=== PATIENT | female | born 2000 | race Caucasian/White ===

== ENCOUNTER 2022-02-20 22:41 | Emergency (ER) | payer MEDICAID, SELFPAY ==
--- NOTE | 2022-02-20 22:44 | USR_ITS ---
PROCEDURE INFORMATION: Exam: US First Trimester, Transabdominal and US , Exam date and time: 02/20/2022 11:54 PM Age: 21 years old Clinical indication: Lmp or gestational age (in weeks): 10w 2d per lmp; Antepartum complications; Bleeding; Patient HX: Heavy vag bleed x 4 days. She fell today and vag bleed increased. ; Additional info: Fall, abd pain LABS AND CLINICAL REPORTS: Gestational age (Established): 10 w 2 d Estimated due date (Established): 09/16/2022 TECHNIQUE: Imaging protocol: Real-time transabdominal obstetrical ultrasound of the maternal pelvis and a first trimester , less than 14 weeks 0 days, with image documentation. Patient refused transvaginal imaging. COMPARISON: No relevant prior studies available. FINDINGS: Gestation: No obvious intrauterine at this time. MATERNAL: Uterus: Uterus measures 8.9 cm x 4.8 cm x 5.8 cm. 9 mm endometrial stripe. Cervix: Unremarkable. Right ovary/adnexa: Right ovary measures 3.5 cm x 2.2 cm x 2.3 cm. Right ovarian volume is 9.1 mL. 2 cm simple right ovarian cyst. Left ovary/adnexa: Left ovary measures 2.7 cm x 2.9 cm x 3 cm. Left ovarian volume is 16.5 mL. 1.7 cm simple left ovarian cyst. Intraperitoneal space: No intraperitoneal free fluid. US/US OB <=14 wk fetus w transvag IMPRESSION: 1. 2 cm simple right ovarian cyst. 2. 1.7 cm simple left ovarian cyst. 3. Normal uterus. 4. Normal ovarian perfusion bilaterally with no torsion. 5. No obvious intrauterine . 6. Serial quantitative hCGs and/or followup ultrasound may be helpful.
[2022-02-20 22:45] VITALS: BP 125/69; PULSE 77; RESP 18; TEMP 36.8; O2SAT 99
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
[2022-02-20 22:53] VITALS: PULSE 77; RESP 18; O2SAT 100
[2022-02-20 23:46] LABS: Basophils # 0.1 10^3/uL (0.0-0.1); Basophils % 0.6 %; Eosinophils # 0.2 10^3/uL (0.0-0.8); Eosinophils % 2.5 %; Hematocrit 36.2 % (37.0-47.0); Hemoglobin 12.4 g/dL (11.5-15.3); Lymphocytes # 2.7 10^3/uL (1.5-6.5); Lymphocytes % 27.4 %; Mean Corpuscular HGB Conc 34.3 g/dL (30.0-36.0); Mean Corpuscular Hemoglobin 30.1 pg (28.0-34.0); Mean Corpuscular Volume 87.9 fl (81-99); Mean Platelet Volume 9.8 fL (7.4-10.4); Monocytes # 0.5 10^3/uL (0.2-0.9); Neutrophils # 6.29 10^3/uL (1.8-8.0); Neutrophils % 64.2 %; Nucleated Red Blood Cells % 0 %; Platelet Count 368 10^3/cmm (130-400); Red Blood Count 4.12 10^6/uL (4.1-5.3); Red Cell Distribution Width 11.7 % (12.1-15.1); White Blood Count 9.8 10^3/uL (4.5-13.0)
[2022-02-21 00:06] VITALS: BP 107/71; PULSE 76; RESP 16; O2SAT 99
[2022-02-21 00:09] LABS: Alanine Aminotransferase 7 U/L (0-33); Albumin Level 4.3 g/dL (3.5-5.2); Alkaline Phosphatase 47 U/L (35-105); Aspartate Amino Transferase 14 U/L (0-32); Blood Urea Nitrogen 7 mg/dL (6-20); Calcium 9.5 mg/dL (8.5-10.5); Carbon Dioxide 25 mmol/L (22-29); Chloride 103 mmol/L (98-107); Globulin 1.8 g/dL (1.3-4.6); Glomerular Filtration Rate 158.9 mL/min (90-130); Glucose 93 mg/dL (65-115); Osmolality Calculated 282 mOsm/kg (285-295); Sodium 137 mmol/L (136-145); Total Bilirubin 0.4 mg/dL (0.15-1.2); Total Protein 6.1 g/dL (6.6-8.7)
[2022-02-21 01:24] VITALS: BP 109/68; PULSE 75; RESP 18; O2SAT 98
--- NOTE | 2022-02-21 07:56 | PC.SOCIAL ---
Addendum entered by An Rowell 03/29/22 13:30: Patient had a follow up appointment for patient with [facility] - patient did attend appointment. Original Note: OBGYN Follow-Up Referral sent to OBGYN for follow up. Clinic to contact patient with appt date/time.
== END 2022-02-21 01:26 | disposition home or self-care (01) ==
PROVIDERS: Emergency Provider Nurse Practitioner Family
DX: O03.9 Complete or unspecified spontaneous abortion without complication (principal)
CPT/HCPCS: 76801; 76817; 80053; 84702; 85025; 86900; 99284

== ENCOUNTER → 2022-02-22 13:20 | Outpatient (BNVA) | payer MEDICAID, SELFPAY | PROVIDERS: Visit Provider Obstetrics & Gynecology | DX: O03.9 Complete or unspecified spontaneous abortion without complication (principal) | CPT/HCPCS: 84702 ==

== ENCOUNTER → 2022-02-24 13:00 | Outpatient (BNVA) | payer MEDICAID, SELFPAY | PROVIDERS: Visit Provider Obstetrics & Gynecology | DX: O03.9 Complete or unspecified spontaneous abortion without complication (principal) | CPT/HCPCS: 84702 ==

== ENCOUNTER 2023-05-24 19:35 | Emergency (ER) | payer MEDICAID, SELFPAY ==
[2023-05-24 19:39] VITALS: BP 106/77; PULSE 94; RESP 16; TEMP 36.6; O2SAT 99; BMI 21.2
--- NOTE | 2023-05-24 19:56 | ED_ITS ---
HPI - 2 General: Chief complaint: Abdominal Pain Stated complaint: abdomen pain- 11 wks ,cramping Time Seen by Provider: 05/24/23 19:40 History of Present Illness: 22-year-old female comes in today with c omplaints of right lower quadrant abdominal pain starting at about 4:00 this afternoon. Patient reports it is consistent cramping. Patient is 11 weeks and 1 day. Patient [facility] care [facility]. Patient's last menstrual cycle was March 18. Patient is 5 para 0. Patient reports some nausea and chills. Patient denies any vaginal bleeding and only light discharge. Patient denies any surgeries. Patient does vape nicotine. Patient had ultrasound at 7 weeks that was unremarkable. Patient appears nontoxic. Patient appears in mild pain at rest. Patient reports pain is exacerbated by movement. MD Complaint: abdominal pain Onset (ago): hour(s) Pain Consistency: constant Location: abdomen (rlq) Severity: moderate Relieving factors: rest Exacerbating factors: movement Vaginal discharge: clear Vaginal bleeding: none Date of Last Menstrual Period: 03/18/23 Patient : Yes Number of Weeks : 11 OB History - Current : no complications OB History - Previous Pregnancies: miscarriage care: previous ultrasound confirms IUP (7 wks) Associated symptoms: Reports abdominal pain Related Data: : 4 Review of Systems 2 General: Reports: 10 or more systems reviewed and unremarkable except in HPI and below GI: Reports: abdominal pain [facility] 2 Female Reproductive History: Date of last menstrual period: 03/18/23 G ravida: 4 Physical Exam 2 Const: COMMON NORMALS: alert HENMT: COMMON NORMALS: normocephalic HEAD & SCALP: normocephalic Neck/C-Spine: COMMON NORMALS: full ROM Resp: COMMON NORMALS: normal respiratory effort Cardio: COMMON NORMALS: regular rate RATE: regular rate GI: COMMON NORMALS: Soft to palpation PALPATION: Yes Soft to palpation : COMMON NORMALS: Yes no CVA tenderness BLADDER/KIDNEY EXAM: Yes no CVA tenderness Back/Pelvis: COMMON NORMALS: no CVA tenderness and thoracic and lumbar spine normal to inspection Extremity: COMMON NORMALS: normal to inspection Neuro: SENSORIUM/ORIENTATION: Yes alert Psych: COMMON NORMALS: cooperative Skin: COMMON NORMALS: turgor normal GENERAL SKIN EXAM: turgor normal Procedures Perimortem Number of Weeks : 11 Course 2 Vital Signs: Vital signs: Vital Signs Temperature 98 F 05/24/23 19:39 Pulse Rate 84 05/24/23 21:24 Respiratory Rate 16 05/24/23 21:24 Blood Pressure 128/69 05/24/23 21:24 Pulse Oximetry 93 05/24/23 21:24 Oxygen Delivery Me thod Room Air 05/24/23 19:39 MDM - OB/Uterine Contractions Medical Decision Making Patient is 11 weeks came in due to increased right lower quadrant abdominal pelvic pain. On exam patient is alert and oriented. Abdomen soft, mild tenderness to the right lower quadrant. Bowel sounds are present. Vital signs are normal. Differential diagnosis includes not limited to UTI, threatened miscarriage, appendicitis, constipation. CBC was normal. CRP was normal. CMP noted some mild decrease in potassium at 3.4. Urinalysis was a dirty catch. Ultrasound showed a single live intrauterine at 12 weeks with a heart rate of 157. Reviewed exam with patient's and family with recommendations for treatment and follow-up. Patient reported understanding and agreed to plan. Lab Data 05/24/23 19:58 05/24/23 19:58 Radiology Impressions Ultrasound 05/24/23 20:01 IMPRESSION: Single living intrauterine measuring 12 weeks 2 days by crown-rump length. Laboratory Results WBC 5.71 10^3/uL (4.5-13.0) 05/24/23 19:58 RBC 4.16 10^6/uL (3.85-5.65) 05/24/23 19:58 Hgb 12.20 g/dL (12.4-14.8) L 05/24/23 19:58 Hct 36.2 % (36-47) 05/24/23 19:58 MCV 87.0 fl (85-98) 05/24/23 19:58 MCH 29.3 pg (27-33) 05/24/23 19:58 MCHC 33.7 g/dL (30-55) 05/24/23 19:58 RDW 12.6 % (12.1-15.1) 05/24/23 19:58 Plt Count 262 10^3/cmm (157-399) 05/24/23 19:58 MPV 9.4 fL (7.4-10.4) 05/24/23 19:58 Neut % (Auto) 63.1 % 05/24/23 19:58 Lymph % (Auto) 29.9 % 05/24/23 19:58 [place] % (Auto) 5.1 % 05/24/23 19:58 Eos % (Auto) 1.1 % 05/24/23 19:58 Baso % (Auto) 0.4 % 05/24/23 19:58 Neut # (Auto) 3.61 10^3/uL (1.8-8.0) 05/24/23 19:58 Lymph # (Auto) 1.7 10^3/uL (1.5-6.5) 05/24/23 19:58 [place] # (Auto) 0.3 10^3/uL (0.2-0.9) 05/24/23 19:58 Eos # (Auto) 0.1 10^3/uL (0.0-0.8) 05/24/23 19:58 Baso # (Auto) 0.0 10^3/uL (0.0-0.1) 05/24/23 19:58 Nucleated RBC % (auto) 0 % 05/24/23 19:58 Nucleated RBCs # 0.0 /100WBC 05/24/23 19:58 Sodium 139 mmol/L (136-145) 05/24/23 19:58 Potassium 3.4 mmol/L (3.5-5.1) L 05/24/23 19:58 Chloride 106 mmol/L (98-107) 05/24/23 19:58 Carbon Dioxide 21 mmol/L (22-29) L 05/24/23 19:58 Anion Gap 15.4 (5-19) 05/24/23 19:58 BUN 5 mg/dL (6-20) L 05/24/23 19:58 Creatinine 0.4 mg/dL (0.5-0.9) L 05/24/23 19:58 GFR Calculation 203.5 mL/min (90-130) H 05/24/23 19:58 Glucose 89 mg/dL (65-115) 05/24/23 19:58 Calculated Osmolality 285 mOsm/kg (285-295) 05/24/23 19:58 Calcium 8.7 mg/dL (8.5-10.5) 05/24/23 19:58 Total Bilirubin 0.3 mg/dL (0.15-1.2) 05/24/23 19:58 AST 13 U/L (0-32) 05/24/23 19:58 ALT 13 U/L (0-33) 05/24/23 19:58 Alkaline Phosphatase 43 U/L (35-105) 05/24/23 19:58 C-Reactive Protein 3.0 mg/L (0.0-4.9) 05/24/23 19:58 Total Protein 6.3 g/dL (6.6-8.7) L 05/24/23 19:58 Albumin 3.9 g/dL (3.5-5.2) 05/24/23 19:58 Globulin 2.4 g/dL (1.3-4.6) 05/24/23 19:58 Ser , Semi-Qnt 323519.00 mIU/mL 05/24/23 19:58 Urine Color Yellow (Yellow) 05/24/23 19:53 Urine Appearance Cloudy (CLEAR) A 05/24/23 19:53 Urine pH 7 (5-7) 05/24/23 19:53 Ur Specific [place] 1.015 (1.005-1.030) 05/24/23 19:53 Urine Protein Neg (Negative) 05/24/23 19:53 Urine Glucose (UA) Norm (Normal) 05/24/23 19:53 Urine Ketones Negative (Negative) 05/24/23 19:53 Urine Blood Neg (Negative) 05/24/23 19:53 Urine Nitrate Negative (Negative) 05/24/23 19:53 Urine Bilirubin Neg (Negative) 05/24/23 19:53 Urine Urobilinogen Neg mg/dL (Negative) 05/24/23 19:53 Ur Leukocyte Esterase 2+ (Negative) H 05/24/23 19:53 Urine RBC None /hpf (0-2) 05/24/23 19:53 Urine WBC 5-10 /hpf (0-5) H 05/24/23 19:53 Ur Squamous Epith Cells 15-25 /hpf (0-5) H 05/24/23 19:53 Amorphous Sediment Not Reportable 05/24/23 19:53 Urine Bacteria 2+ /hpf (NONE) H 05/24/23 19:53 All radiology interpretation(s) finalized by discharge Discharge Plan Discharge Patient Disposition: Home Clinical Impression: Abdominal pain Qualifiers: Abdominal location: right lower quadrant Qualified Code(s): R10.31 - Right lower quadrant pain Qualifiers: Weeks of gestation: 12 weeks Qualified Code(s): Z3A.12 - 12 weeks gestation of Condition: Stable Prescriptions: No Action No Known Home Medications Discharge Orders: Discharge ED (Routine); Ordered 05/24/23 Ordered By: Bacilio Bertrand Discharge Diet: Usual diet Discharge Activity: Increase activity as tolerated Patient Instructions: Abdominal Pain (ED) Activity Restrictions/Additional Instructions: Drink plenty of fluids. Activity as tolerated. Follow-up with primary care for further instructions. Return to ED for new concerns such as high fever, vaginal bleeding, or severe pain. 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
--- NOTE | 2023-05-24 20:01 | USR_ITS ---
PROCEDURE INFORMATION: Exam: US First Trimester, Transabdominal and US , Transvaginal Exam date and time: 05/24/2023 8:59 PM Age: 22 years old Clinical indication: complicated by abdominal or pelvic pain; Right lower quadrant; First trimester (<14 weeks 0 days); Gestational age or lmp: 12w 2d; ; Patient HX: Rlq pain x 4 hours. No vaginal bleeding. ; Additional info: Abd pain LABS AND CLINICAL REPORTS: Serum Choriogonadotropin (HCG): 214605 mIU/mL Last menstrual period start date: Unknown Gestational age (Established): 11 w 1 d Estimated due date (Established): 12/12/2023 TECHNIQUE: Imaging protocol: Real-time transabdominal obstetrical ultrasound of the maternal pelvis and a first trimester , less than 14 weeks 0 days, with image documentation. Transvaginal imaging was used for better evaluation of the fetus, adnexa, and/or cervix. COMPARISON: US OB <=14 wk fetus w transvag 02/20/2022 11:54 PM FINDINGS: Gestation: Intrauterine gestation is visualized. pole is visualized. No yolk sac is visualized. Embryonic/ heart rate: 157 bpm Extra-embryonic membranes/Placenta: Unremarkable. No subchorionic bleed. Amniotic fluid: Amniotic fluid and extra-amniotic fluid is normal for gestational age. BIOMETRY: Gestational age (AUA): 12 w 2 d Estimated due date (AUA): 12/04/2023 [place]-Rump length (CRL): 57 mm. EGA (CRL) is 12 w 2 d. Single living intrauterine measuring 12 weeks 2 days by crown-rump length. MATERNAL: Uterus: Uterus measures 13.7 cm x 9.2 cm x 9.2 cm. Cervix: Cervical length measures 3.5 cm. Right ovary/adnexa: Unremarkable ovary. Left ovary/adnexa: Unremarkable ovary. Intraperitoneal space: No intraperitoneal free fluid. US/US OB <= 14 weeks fetus [id number] IMPRESSION: Single living intrauterine measuring 12 weeks 2 days by crown-rump length.
[2023-05-24] MEDS: sodium chloride 0.9% 500 ML 999 ML IV (20:02)
[2023-05-24 20:11] LABS: Basophils % 0.4 %; Eosinophils # 0.1 10^3/uL (0.0-0.8); Eosinophils % 1.1 %; Hematocrit 36.2 % (36-47); Lymphocytes # 1.7 10^3/uL (1.5-6.5); Lymphocytes % 29.9 %; Mean Corpuscular HGB Conc 33.7 g/dL (30-55); Mean Corpuscular Hemoglobin 29.3 pg (27-33); Mean Platelet Volume 9.4 fL (7.4-10.4); Monocytes # 0.3 10^3/uL (0.2-0.9); Monocytes % 5.1 %; Neutrophils # 3.61 10^3/uL (1.8-8.0); Neutrophils % 63.1 %; Nucleated Red Blood Cells % 0 %; Platelet Count 262 10^3/cmm (157-399); Red Blood Count 4.16 10^6/uL (3.85-5.65); Red Cell Distribution Width 12.6 % (12.1-15.1); White Blood Count 5.71 10^3/uL (4.5-13.0)
[2023-05-24 20:24] LABS: Add Urine Microscopic? YES; Bilirubin Urine Neg (Negative); Blood Urine Neg (Negative); Glucose Urine UA Norm (Normal); Ketones Urine Negative (Negative); Leukocyte Esterase Urine 2+ (Negative); Nitrate Urine Negative (Negative); Protein Urine Neg (Negative); Specific Gravity, Urine 1.015 (1.005-1.030); Urine Appearance Cloudy (CLEAR); Urine Color Yellow (Yellow); Urobilinogen Urine Neg (Negative); pH Urine 7 (5-7)
[2023-05-24 20:25] LABS: Add Urine Culture? No; Bacteria Urine 2+ /hpf; Other Sediment, Urine 2; Squamous Epithelial Cell Urine 15-25 /hpf (0-5)
[2023-05-24 20:35] VITALS: BP 110/73; PULSE 92; RESP 15; O2SAT 100
[2023-05-24 20:53] LABS: Alanine Aminotransferase 13 U/L (0-33); Albumin Level 3.9 g/dL (3.5-5.2); Alkaline Phosphatase 43 U/L (35-105); Anion Gap 15.4 (5-19); Aspartate Amino Transferase 13 U/L (0-32); Blood Urea Nitrogen 5 mg/dL (6-20); Calcium 8.7 mg/dL (8.5-10.5); Carbon Dioxide 21 mmol/L (22-29); Chloride 106 mmol/L (98-107); Globulin 2.4 g/dL (1.3-4.6); Glomerular Filtration Rate 203.5 mL/min (90-130); Glucose 89 mg/dL (65-115); Osmolality Calculated 285 mOsm/kg (285-295); Potassium 3.4 mmol/L (3.5-5.1); Sodium 139 mmol/L (136-145); Total Bilirubin 0.3 mg/dL (0.15-1.2); Total Protein 6.3 g/dL (6.6-8.7)
[2023-05-24 21:24] VITALS: BP 128/69; PULSE 84; RESP 16; O2SAT 93
--- NOTE | 2023-05-24 21:27 | PC.NURSE ---
report given to venita, rn
== END 2023-05-24 22:14 | disposition home or self-care (01) ==
PROVIDERS: Emergency Medicine; Emergency Provider Nurse Practitioner Family
DX: O26.891 Other specified pregnancy related conditions, first trimester (principal); R10.31 Right lower quadrant pain; Z3A.12 12 weeks gestation of pregnancy
CPT/HCPCS: 76801; 80053; 81001; 84702; 85025; 86140; 96360; 99284; J7040